=== PATIENT | male | born 1945 | race Caucasian/White ===

== ENCOUNTER → 2016-03-19 | Outpatient (CLI) | payer OTHER ==
--- NOTE | 2016-03-19 17:56 | DX ---
PA and lateral chest - March 19, 2016 History: Chronic fatigue. Comparison: None available. Findings: There is mild interstitial prominence without focal consolidation, pneumothorax, or pleura l effusion. The heart size is normal. The aorta is tortuous. Calcified left hilar lymph nodes are pre sent. Mild degenerative change is present in the spine. Impression: Mild interstitial prominence, which could be related to COPD or emphysema, with no acute findings.
== END ==
LOC: FIMAGING 10:20
PROVIDERS: ATTEND Internal Medicine Infectious Disease
DX: R53.83 Other fatigue (principal); D72.829 Elevated white blood cell count, unspecified